=== PATIENT | male | born 1965 | race African-American/Black ===

== ENCOUNTER 2017-04-22 11:48 | Emergency (ER) | payer OTHER ==
--- NOTE | 2017-04-22 12:13 | ER Document Report ---
ED Psych Disorder / Suicide - General Chief Complaint: Homicidal Ideation Stated Complaint: PSYCH EVAL Time Seen by Provider: 04/22/17 11:58 Notes: The patient is a 51-year-old male, past medical history combat related PTSD, presents on an IVC with homicidal and suicidal ideation. He says that he has a list of people to kill, beginning with his and he has access to 4 guns at home. Patient's been off his medications for the past month. He is also having visual hallucinations where he is seeing [place] being burned. Patient denies drug abuse, alcohol abuse, fevers, headache or neck pain. TRAVEL OUTSIDE OF THE [place] IN LAST 30 DAYS: No - Related Data Allergies/Adverse Reactions: No Known Allergies Allergy (Verified 04/22/17 12:44) Home Medications: Current Home Medications Diclofenac Potassium 50 mg PO Q12HP PRN 04/22/17 [History] Ipratropium/Albuterol Sulfate [Combivent Respimat 4 gm Mdi] 1 puff IH Q6 [History] Sildenafil Citrate [Viagra] 50 mg PO PRN PRN 04/22/17 [History] Tamsulosin HCl [Flomax 0.4 mg Cap.sr] 0.4 mg PO DAILY 04/22/17 [History] Past Medical History - General Information source: Patient, Law Enforcement - Social History Smoking Status: Unknown if Ever Smoked Family History: Reviewed & Not Pertinent Past Surgical History: Reports: Hx Orthopedic Surgery - Immunizations Hx Diphtheria, Pertussis, Tetanus Vaccination: Yes Review of Systems - Review of Systems Notes: REVIEW OF SYSTEMS: CONSTITUTIONAL: -fevers, -chills EENT: -eye pain, -difficulty swallowing, -nasal congestion CARDIOVASCULAR:-chest pain, -syncope. RESPIRATORY: -cough, -SOB GASTROINTESTINAL: -abdominal pain, - nausea, -vomiting, -diarrhea GENITOURINARY: -dysuria, -hematuria MUSCULOSKELETAL: -back pain, -neck pain SKIN: -rash or skin lesions. HEMATOLOGIC: -easy bruising or bleeding. LYMPHATIC: -swollen, enlarged glands. NEUROLOGICAL: -altered mental status or loss of consciousness, -headache, - neurologic symptoms PSYCHIATRIC: +SI, +HI, +aggressive behavior ALL OTHER SYSTEMS REVIEWED AND NEGATIVE. Physical Exam - Vital signs Vitals: Temp Pulse Resp BP Pulse Ox 98.5 F 66 16 131/92 H 99 11/16/17 11:52 04/22/17 11:52 04/22/17 11:52 04/22/17 11:52 04/22/17 11:52 - Notes Notes: PHYSICAL EXAMINATION: GENERAL: Well-appearing, well-nourished and in no acute distress. HEAD: Atraumatic, normocephalic. EYES: Pupils equal round and reactive to light, extraocular movements intact, sclera anicteric, conjunctiva are normal. ENT: nares patent, oropharynx clear without exudates. Moist mucous membranes. NECK: Normal range of motion, supple without lymphadenopathy LUNGS: Breath sounds clear to auscultation bilaterally and equal. No wheezes rales or rhonchi. HEART: Regular rate and rhythm without murmurs ABDOMEN: Soft, nontender, normoactive bowel sounds. No guarding, no rebound. No masses appreciated. EXTREMITIES: Normal range of motion, no pitting or edema. No cyanosis. NEUROLOGICAL: Cranial nerves grossly intact. Normal speech, normal gait. Normal sensory and motor exams. PSYCH: Normal mood, normal affect. SKIN: Warm, Dry, normal turgor, no rashes or lesions noted. Course - Re-evaluation Re-evalutation: 04/22/17 15:41 Pt presents on an IVC with homicidal and suicidal thoughts. He is cooperative and wants to get help. Medically cleared and patient is ready for evaluation and further recommendations by mental health. - Vital Signs Vital signs: Temp Pulse Resp BP Pulse Ox 98.5 F 66 16 131/92 H 99 04/22/17 11:52 04/22/17 11:52 04/22/17 11:52 04/22/17 11:52 04/22/17 11:52 - Laboratory Result Diagrams: 04/22/17 12:55 04/22/17 12:55 Laboratory results interpreted by me: 04/22/17 04/22/17 12:55 12:55 RDW 14.3 H Salicylates < 1.0 L Acetaminophen < 10 L Discharge - Discharge Clinical Impression: Homicidal ideation, Suicidal ideation Condition: Serious Disposition: PSYCH HOSP/UNIT
[2017-04-22 13:14] LABS: ABSOLUTE EOSINOPHILS # (AUTO) 0.2 10^3/uL (0.0-0.6); ABSOLUTE LYMPHOCYTES (AUTO) 2.1 10^3/uL (0.5-4.7); ABSOLUTE MONOCYTES (AUTO) 0.3 10^3/uL (0.1-1.4); ABSOLUTE NEUT (AUTO) 3.2 10^3/uL (1.7-8.2); BASOPHILS % (AUTO) 0.7 % (0-2); EOSINOPHILS % (AUTO) 3.3 % (0-6); HEMATOCRIT 41.3 % (37.9-51.0); HEMOGLOBIN 13.9 g/dL (13.5-17.0); HGB HCT DIFFERENCE 0.4; LYMPHOCYTES % (AUTO) 36.7 % (13-45); MEAN CORPUSCULAR HGB CONC 33.7 g/dL (32.0-36.0); MEAN CORPUSCULAR VOLUME 89 fl (80-97); MONOCYTES % (AUTO) 4.4 % (3-13); RED BLOOD COUNT 4.64 10^6/uL (4.35-5.55); RED CELL DISTRIBUTION WIDTH 14.3 % (11.5-14.0); SEGMENTED NEUTROPHILS % (AUTO) 54.9 % (42-78); WHITE BLOOD COUNT 5.8 10^3/uL (4.0-10.5)
[2017-04-22 13:17] LABS: APPEARANCE,URINE CLEAR; BILIRUBIN,URINE NEGATIVE (NEGATIVE); GLUCOSE, URINE NEGATIVE (NEGATIVE); KETONES,URINE NEGATIVE (NEGATIVE); LEUKOCYTE ESTERASE,URINE NEGATIVE (NEGATIVE); NITRITE,URINE NEGATIVE (NEGATIVE); PROTEIN,URINE NEGATIVE (NEGATIVE); URINE SPECIFIC GRAVITY 1.002; UROBILINOGEN,URINE NEGATIVE mg/dL (<2.0)
[2017-04-22 13:37] LABS: URINE BARBITURATES SCREEN NEGATIVE; URINE METHADONE SCREEN NEGATIVE; URINE OPIATES LOW NEGATIVE; URINE PHENCYCLIDINE SCREEN NEGATIVE
[2017-04-22 13:45] LABS: ALANINE AMINOTRANSFERASE 29 U/L (21-72); ALBUMIN 4.1 g/dL (3.5-5.0); ALKALINE PHOSPHATASE 70 U/L (38-126); ANION GAP 10 (5-19); ASPARTATE AMINO TRANSFERASE 19 U/L (17-59); BILIRUBIN,DIRECT 0.3 mg/dL (0.0-0.4); BILIRUBIN,TOTAL 0.7 mg/dL (0.2-1.3); BLOOD UREA NITROGEN 12 mg/dL (7-20); CALCIUM 9.6 mg/dL (8.4-10.2); CARBON DIOXIDE 27 mmol/L (22-30); CHLORIDE 106 mmol/L (98-107); CREATININE RESULT 1.01 mg/dL (0.52-1.25); GLUCOSE 85 mg/dL (75-110); POTASSIUM 4.1 mmol/L (3.6-5.0); SODIUM 142.7 mmol/L (137-145); TOTAL PROTEIN 7.2 g/dL (6.3-8.2)
[2017-04-22 13:46] LABS: ALCOHOL < 10 mg/dL (NONE DETECTED)
[2017-04-22] MEDS ORDERED: OLANZAPINE 5 MG TABLET PO ONE (17:13)
[2017-04-23] MEDS: OLANZAPINE 5 MG TABLET PO SCH ×2 (09:15→18:27)
[2017-04-23] MEDS: BENZTROPINE MESYLATE 1 MG TABLET PO SCH (09:15)
--- NOTE | 2017-04-23 09:28 | EKG REPORT ---
SEVERITY:- BORDERLINE ECG - SINUS RHYTHM BORDERLINE T ABNORMALITIES, INFERIOR LEADS ST ELEV L1 AND AVL, PROBABLE NORMAL EARLY REPOL PATTERN VS ISCHEMIC : Confirmed by: Andrea Hoffman 23-Apr-2017 09:28:06
--- NOTE | 2017-04-23 10:25 | ER Document Report ---
Doctor's Note Notes: 04/23/17 10:24 Rounds: Chart reviewed and patient interviewed. Patient has a history of PTSD. Is having homicidal and suicidal thoughts. Says he has access to several guns at home. Patient's vital signs are all normal. His lab studies are normal except for being positive for marijuana on his drug screen. Patient appears to be medically stable for transfer or discharge. Paz Batista MD
--- NOTE | 2017-04-23 15:20 | PSYCHOLOGICAL NOTE ---
Psych Note - Psych Note Psych Note: The patient is a 51-year-old male, past medical history combat related PTSD, presents on an IVC with homicidal and suicidal ideation. He says that he has a list of people to kill, beginning with his and he has access to 4 guns at home. Patient's been off his medications for the past month. He is also having visual hallucinations where he is seeing [place] being burned. Clinician conducted check in with patient : He stated he does feel a little better and is glad he is started back on medications that he needs it. Patient is no currently having any PTSD episodes. Patient is still feeling upset about other people and continues to want little contact with others at this time. I have no idea so Alert and orientated to person place time and circumstance. Patient endorses suicidal and homicidal ideation with plan. Patient endorses visual and olfactory hallucinations from PTSD episodes. delusions are absent behaviors congruent with intact reality based presentation i.e. organized,linear, rational thinking. Eye contact was well-maintained. Conversational speech was quiet with a low tone. Patient very polite. Attention and concentration is good. Insight, judgment, impulse control is poor. 309.81 (F43.10) Posttraumatic Stress [facility] by [facility] Impression/plan: patient is recommended to continue under IVC. Patient endorses suicidal and homicidal ideation with plan of killing a list of people to include is ex-. Patient has access to multiple weapons. [facility] confirmed they will be contacting the ex- because of duty to inform. Dr. Rodriguez was consulted on the care and management of this patient; attending physician is in agreement with recommendations and disposition.
[2017-04-24] MEDS: BENZTROPINE MESYLATE 1 MG TABLET PO SCH (09:17)
[2017-04-24] MEDS: OLANZAPINE 5 MG TABLET PO SCH ×2 (09:17→17:28)
--- NOTE | 2017-04-24 10:09 | ER Document Report ---
Doctor's Note Notes: 04/24/17 10:08 Rounds: Chart reviewed and patient interviewed. Patient says is feeling better on the medications we are giving him, Zyprexa. Patient no longer feels homicidal or suicidal. Vital signs are all normal. No new labs to look at. Patient appears to be medically stable for transfer or discharge. Paz Batista MD
--- NOTE | 2017-04-24 14:29 | PSYCHOLOGICAL NOTE ---
Psych Note - Psych Note Psych Note: The patient is a 51-year-old male, past medical history combat related PTSD, presents on an IVC with homicidal and suicidal ideation. He says that he has a list of people to kill, beginning with his and he has access to 4 guns at home. Patient's been off his medications for the past month. He is also having visual hallucinations where he is seeing [place] being burned. Clinician conducted a check in with patient: Patient stated there are two things he wanted to tell the clinician "1..the medication is working, I don't feel as upset..2 I saw my little friend a few times last night but it did not up set me as much as it has in the past." Clinician observed the patient to be presenting not a tense; previously, the patient appeared to be clinching his muscles. Patient is noted to also have a different rate, tone and prosody. He is still easy to understand. Alert and orientated to person place time and circumstance. Patient endorses suicidal and homicidal ideation with plan. Patient endorses visual and olfactory hallucinations from PTSD episodes. delusions are absent behaviors congruent with intact reality based presentation i.e. organized,linear, rational thinking. Eye contact was well-maintained. Conversational speech was quiet with a low tone. Patient very polite. Attention and concentration is good. Insight, judgment, impulse control is poor. 309.81 (F43.10) Posttraumatic Stress Disorder per [facility] provided by [facility] Impression/plan: patient is recommended to continue under IVC. Patient endorses suicidal and homicidal ideation with plan of killing a list of people to include is ex-. Patient has access to multiple weapons. Local [facility] confirmed they will be contacting the ex- because of duty to inform. Patient has had a few PTSD episodes since arriving in [facility] ED of visual hallucinations. Dr. Rodriguez was consulted on the care and management of this patient; attending physician is in agreement with recommendations and disposition.
[2017-04-24 14:54] LABS: ALANINE AMINOTRANSFERASE 28 U/L (21-72); ALKALINE PHOSPHATASE 70 U/L (38-126); ANION GAP 11 (5-19); ASPARTATE AMINO TRANSFERASE 22 U/L (17-59); BILIRUBIN,DIRECT 0.3 mg/dL (0.0-0.4); BILIRUBIN,TOTAL 0.6 mg/dL (0.2-1.3); BLOOD UREA NITROGEN 18 mg/dL (7-20); CALCIUM 9.4 mg/dL (8.4-10.2); CARBON DIOXIDE 28 mmol/L (22-30); CHLORIDE 104 mmol/L (98-107); CREATININE RESULT 1.27 mg/dL (0.52-1.25); GLUCOSE 92 mg/dL (75-110); POTASSIUM 4.6 mmol/L (3.6-5.0); TOTAL PROTEIN 7.2 g/dL (6.3-8.2)
[2017-04-24 14:57] LABS: URINE BARBITURATES SCREEN NEGATIVE; URINE METHADONE SCREEN NEGATIVE; URINE OPIATES LOW NEGATIVE; URINE PHENCYCLIDINE SCREEN NEGATIVE
--- NOTE | 2017-04-24 15:10 | PSYCHOLOGICAL NOTE ---
Psych Note - Psych Note Psych Note: The patient is a 51-year-old male, past medical history combat related PTSD, presents on an IVC with homicidal and suicidal ideation. He says that he has a list of people to kill, beginning with his and he has access to 4 guns at home. Patient's been off his medications for the past month. He is also having visual hallucinations where he is seeing [place] being burned. Clinician received phone call from local [facility] informing [facility] ED they are sending a patient they put on IVC this way. They disclosed the patient has PTSD and is suffering SI and HI with plan. Patient was brought in by another [facility] member for assistance. They disclosed the patient has been off his medications for approximately 5 months with the last recorded therapy appointment being in November 2015. They disclosed the patient has a list of people that he wants to kill including his ex-. He states that he would then kill himself because he was not "going back to skilled nursing." Patient reportedly has access to multiple weapons. Patient discloses he used marijuana daily and reports history of cocaine use; last reported use was 3 years ago. Patient has no history known of TBI. [facility] disclosed they will be contacting patient's ex- to inform her per duty to inform. Patient disclosed to clinician that he is "tired...I can't keep fighting." She states that he "cannot stand people" because they keep "doing me wrong." Patient discloses there is a list however does not get into detail about this list. Patient states that he needs help. Patient disclosed that his PTSD has gotten so bad that he can now see [place] soldier staining at the foot of his bed. He states he can smell burning flesh and blood. Alert and orientated to person place time and circumstance. Patient endorses suicidal and homicidal ideation with plan. Patient endorses visual and olfactory hallucinations from PTSD episodes. delusions are absent behaviors congruent with intact reality based presentation i.e. organized,linear, rational thinking. Eye contact was well-maintained. Conversational speech was quiet with a low tone. Patient very polite. Attention and concentration is good. Insight, judgment, impulse control is poor. 309.81 (F43.10) Posttraumatic Stress Disorder per history provided by [facility] Impression/plan: patient is recommended to continue under IVC. Patient endorses suicidal and homicidal ideation with plan of killing a list of people to include is ex-. Patient has access to multiple weapons. Local [facility] confirmed they will be contacting the ex- because of duty to inform. Dr. Rodriguez was consulted on the care and management of this patient; attending physician is in agreement with recommendations and disposition.
--- NOTE | 2017-04-24 15:57 | PDOC CONSULTATION ---
Consultation Consult Date: 04/24/17 Attending physician:: CARA MARKS Consult reason:: abn EKG History of Present Illness Patient complains of: No chest pain, Psysch issues. History of Present Illness: The patient is a 51-year-old male, past medical history combat related PTSD, presents on an IVC with homicidal and suicidal ideation. He says that he has a list of people to kill, beginning with his and he has access to 4 guns at home. Patient's been off his medications for the past month. He is also having visual hallucinations where he is seeing [place] being burned. Patient denies drug abuse, alcohol abuse, fevers, headache or neck pain. Denies chest pain and prior heart problems. Past Medical History Cardiac Medical History: Reports: None Pulmonary Medical History: Reports: None Past Surgical History Past Surgical History: Reports: Orthopedic Surgery Social History Information Source: Patient Smoking Status: Unknown if Ever Smoked Drugs: Marijuana - Advance Directive Resuscitation Status: Full Code Family History Family History: Reviewed & Not Pertinent Parental Family History Reviewed: Yes Children Family History Reviewed: Yes Sibling(s) Family History Reviewed.: Yes - Negative for premature CAD Medication/Allergy Home Medications: Diclofenac Potassium 50 mg PO Q12HP PRN 04/22/17 Ipratropium/Albuterol Sulfate [Combivent Respimat 4 gm Mdi] 1 puff IH Q6 Sildenafil Citrate [Viagra] 50 mg PO PRN PRN 04/22/17 Tamsulosin HCl [Flomax 0.4 mg Cap.sr] 0.4 mg PO DAILY 04/22/17 Allergies/Adverse Reactions: No Known Allergies Allergy (Verified 04/22/17 12:44) Review of Systems Constitutional: ABSENT: chills, fever(s), headache(s), weight gain, weight loss Eyes: ABSENT: visual disturbances Ears: ABSENT: hearing changes Cardiovascular: ABSENT: chest pain, dyspnea on exertion, edema, orthropnea, palpitations Respiratory: ABSENT: cough, hemoptysis Gastrointestinal: ABSENT: abdominal pain, constipation, diarrhea, hematemesis, hematochezia, nausea, vomiting Genitourinary: ABSENT: dysuria, hematuria Musculoskeletal: ABSENT: joint swelling Integumentary: ABSENT: rash, wounds Neurological: ABSENT: abnormal gait, abnormal speech, confusion, dizziness, focal weakness, syncope Psychiatric: PRESENT: hallucinations, homidical ideation, suicidal ideation. ABSENT: anxiety, depression Endocrine: ABSENT: cold intolerance, heat intolerance, polydipsia, polyuria Hematologic/Lymphatic: ABSENT: easy bleeding, easy bruising Physical Exam Vital Signs: Temp Pulse Resp BP Pulse Ox 98.8 F 60 20 134/80 H 100 04/24/17 14:27 04/24/17 14:27 04/24/17 14:27 04/24/17 14:27 04/24/17 14:27 Intake & Output 04/23/17 04/24/17 04/25/17 06:59 06:59 06:59 Weight 76 kg General appearance: PRESENT: no acute distress, well-developed, well-nourished Head exam: PRESENT: atraumatic, normocephalic Eye exam: PRESENT: conjunctiva pink, EOMI, PERRLA. ABSENT: scleral icterus Ear exam: PRESENT: normal external ear exam Mouth exam: PRESENT: moist, tongue midline Neck exam: ABSENT: carotid bruit, JVD, lymphadenopathy, thyromegaly Respiratory exam: PRESENT: clear to auscultation zachery. ABSENT: rales, rhonchi, wheezes Cardiovascular exam: PRESENT: RRR, +S1 - n, +S2 - n. ABSENT: diastolic murmur, rubs, systolic murmur Pulses: PRESENT: normal dorsalis pedis pul, +2 pedal pulses bilateral Vascular exam: PRESENT: normal capillary refill GI/Abdominal exam: PRESENT: normal bowel sounds, soft. ABSENT: distended, guarding, mass, organolmegaly, rebound, tenderness Rectal exam: PRESENT: deferred Extremities exam: PRESENT: full ROM. ABSENT: calf tenderness, clubbing, pedal edema Neurological exam: PRESENT: alert, awake, oriented to person, oriented to place , oriented to time, oriented to situation, CN II-XII grossly intact. ABSENT: motor sensory deficit Psychiatric exam: PRESENT: appropriate affect, homicidal ideation, normal mood, suicidal ideation Skin exam: PRESENT: dry, intact, warm. ABSENT: cyanosis, rash Results Laboratory Results: 04/22/17 12:55 04/24/17 14:30 04/24/17 14:30 Sodium 143.0 Potassium 4.6 Chloride 104 Carbon Dioxide 28 Anion Gap 11 BUN 18 Creatinine 1.27 H Est GFR ( Amer) > 60 Est GFR (Non-Af Amer) > 60 Glucose 92 Calcium 9.4 Total Bilirubin 0.6 AST 22 ALT 28 Alkaline Phosphatase 70 Total Protein 7.2 Albumin 4.0 EKG Comments: EKG reviewed. No acute Changes. Relatively unchanged. Assessment & Plan - Diagnosis (1) Abnormal EKG Is this a current diagnosis for this admission?: Yes Plan: Probably not significant as patient has no cardiac/pulm related symptoms and is fairly active. However could do one set of cardiac enzyme. If negative, patient can be transferred to [facility]. (2) Homicidal ideation Is this a current diagnosis for this admission?: Yes Plan: Awaiting Psych facility tranfer. (3) Suicidal ideation Is this a current diagnosis for this admission?: Yes Plan: Awaiting Psych facility tranfer. - Time Time Spent: 30 to 50 Minutes Medications reviewed and adjusted accordingly: Yes
[2017-04-24 16:03] LABS: CREATINE KINASE MB 0.51 ng/mL (<4.55)
[2017-04-24 16:04] LABS: TROPONIN I < 0.012 ng/mL
--- NOTE | 2017-04-25 08:44 | PSYCHOLOGICAL NOTE ---
Psych Note - Psych Note Psych Note: Conducted check in with patient who is a 51 year old male under IVC (by the [facility]) due to SI and HI towards specific individuals named on a list, beginning with his exwife. Patient today presents anxious and reports seeing his "friend" in his room who won't leave. Patient states it is "bad." Observed patient standing outside his room stating he could not go back in at this time, and patient did not want the public safety director sitter to go in his room either. Note , numerous attempts at placement with the [facility] have occurred, to include most recent conversation Wednesday of the [facility] requiring cardiology consult due to abnormal EKG. Patient was cleared by cardiology and information was faxed to the [facility] Wednesday. Call placed to [facility] this morning requesting an update regarding acceptance. Alert and orientated to person place time and circumstance. Patient presents anxious with congruent affect. Patient endorses suicidal and homicidal ideation with plan. Patient endorses visual and olfactory hallucinations from PTSD episodes. delusions are absent behaviors congruent with intact reality based presentation i.e. organized,linear, rational thinking. Eye contact was poor. Conversational speech was quiet with a low tone. Attention and concentration is poor. Insight, judgment, impulse control is poor. 309.81 (F43.10) Posttraumatic Stress Disorder per history provided by [facility] Impression/plan: patient is recommended to continue under IVC. Patient endorses suicidal and homicidal ideation with plan of killing a list of people to include is ex-. Patient has access to multiple weapons. Local [facility] confirmed they will be contacting the ex- because of duty to inform. Patient has had a few PTSD episodes since arriving in [facility] ED of visual hallucinations. Dr. Rodriguez was consulted on the care and management of this patient; attending physician is in agreement with recommendations and disposition.
[2017-04-25] MEDS: OLANZAPINE 5 MG TABLET PO SCH (09:07)
[2017-04-25] MEDS: BENZTROPINE MESYLATE 1 MG TABLET PO SCH (09:07)
[2017-04-25] MEDS ORDERED: CHLORPROMAZINE HCL 50 MG TABLET PO PRN (09:23)
[2017-04-25 10:01] VITALS: BP 148/92
--- NOTE | 2017-04-25 10:31 | ER Document Report ---
Doctor's Note Notes: 04/25/17 10:25 Pt has been accepted to [place] inpatient psychiatric facility, states he has had further hallucinations this morning, continues to see people and smell burning blood. Pt is currently calm, stable, police at bedside and ready to be transported. Denies pain, complains of ingrown toenail left foot, great toe. No sign of infection on my exam, consistent with pincer nail. No need for immediate treatment at this time for this nail.
== END 2017-04-25 10:20 ==
LOC: ER 11:48
DX: R45.850 Homicidal ideations (principal); F43.10 Post-traumatic stress disorder, unspecified; R44.1 Visual hallucinations; R45.851 Suicidal ideations; R94.31 Abnormal electrocardiogram [ECG] [EKG]
CPT/HCPCS: 93005; 99285; 36415; 82553; 80307 ×4; 85025; 80053; 81001; 84484; 93010; J3490